=== PATIENT | male | born 1955 | race Caucasian/White ===

== ENCOUNTER 2020-10-29 12:38 | Observation (INO) | payer MEDICARE ==
[~2020-10-29] VITALS: Ht 162.6 cm; Wt 120.2 kg
[2020-10-29] MEDS ORDERED: DEXAMETHASONE PHOS 4MG/ML 5ML MULTIDOSE VIAL INJ ONE (13:30)
[2020-10-29] MEDS: KETOROLAC TROMETHAMINE 30 MG/ML VIAL IM PRN (13:46)
[2020-10-29] MEDS ORDERED: DEXAMETHASONE SOD PHOS 10 MG/1 ML VIAL ONE (13:52)
[2020-10-29] MEDS ORDERED: LORAZEPAM 0.5 MG TAB PO ONE (16:30)
[2020-10-29 20:11] LABS: BASOPHILS # (AUTO) 0.1 (0.0-0.1); BASOPHILS % 0.3 % (0.0-1.0); HEMATOCRIT 35.6 % (38.2-49.6); LYMPHOCYTES # (AUTO) 0.5 (1.0-3.2); LYMPHOCYTES % 2.6 % (18.0-39.1); MEAN CORPUSCULAR HEMOGLOBIN 29.6 pg (28-32); MEAN CORPUSCULAR HGB CONC 33.7 g/dL (31-35); MEAN CORPUSCULAR VOLUME 87.9 fL (81-99); MONOCYTES # (AUTO) 0.4 (0.2-0.8); MONOCYTES % 2.4 % (4.4-11.3); NEUTROPHILS # (AUTO) 16.4 (2.1-6.9); NEUTROPHILS % 93.9 % (38.7-80.0); PLATELET COUNT 257 x10e3/uL (140-360); RED BLOOD COUNT 4.05 x10e6/uL (4.3-5.7); RED CELL DISTRIBUTION WIDTH 12.2 % (11.7-14.4)
[2020-10-29 20:30] LABS: ALBUMIN 3.2 g/dL (3.5-5.0); ANION GAP 18.8 mmol/L (8-16); CALCIUM 9.4 mg/dL (8.4-10.2); CREATININE, SERUM 1.05 mg/dL (0.72-1.25); POTASSIUM 3.8 mmol/L (3.5-5.1)
[2020-10-30] VITALS (8 sets, daily range): BP systolic 130–179; BP diastolic 57–87
[2020-10-30] MEDS: HYDROCODONE/APAP 7.5MG-325MG 1 EA TAB PO PRN ×3 (03:00→17:36)
[2020-10-30] MEDS ORDERED: ATENOLOL50 MG PO (05:15)
[2020-10-30] MEDS ORDERED: TRIAMTERENE-HCTZ1 EA PO (05:15)
[2020-10-30] MEDS ORDERED: BUSPIRONE HCL5 MG PO (05:15)
[2020-10-30] MEDS ORDERED: PRAVASTATIN SOD40 MG (05:15)
[2020-10-30] MEDS ORDERED: METFORMIN HCL500 MG PO (05:16)
[2020-10-30] MEDS: KETOROLAC TROMETHAMINE 30 MG/ML VIAL IM PRN (09:50)
[2020-10-30 11:25] LABS: CHOL/HDL RATIO 4.5 (3.9-4.7)
[2020-10-30] MEDS: BUSPIRONE HCL 5 MG TAB PO SCH (12:37)
[2020-10-30] MEDS: DULOXETINE HCL 30 MG DELAYED RELEASE PO SCH (12:37)
[2020-10-30] MEDS: TRIAMTERENE/HCTZ 37.5-25 MG TAB PO SCH (12:37)
[2020-10-30] MEDS: GABAPENTIN 100 MG CAP PO SCH ×2 (12:38→23:28)
[2020-10-30] MEDS ORDERED: ATENOLOL 50 MG TAB PO SCH (13:00)
[2020-10-30] MEDS ORDERED: DOCUSATE SODIUM 100 MG CAP PO PRN (13:15)
[2020-10-30] MEDS ORDERED: ZOLPIDEM TARTRATE 5 MG TAB PO PRN (13:15)
[2020-10-30] MEDS ORDERED: ONDANSETRON HCL INJ 2MG/ML 2ML 2 MG/ML VIAL IV PRN (13:15)
[2020-10-30] MEDS ORDERED: DEXTROSE 50% SYRINGE 50 ML IV PRN (13:30)
[2020-10-30] MEDS: ACETAMINOPHEN 325 MG TAB PO SCH ×2 (15:20→22:00)
[2020-10-30] MEDS: INSULIN REGULAR, HUMAN 100 UNIT/1 ML SQ SCH ×2 (16:30→23:27)
[2020-10-30] MEDS: CYCLOBENZAPRINE HCL 10 MG TAB PO SCH (16:47)
[2020-10-30] MEDS: ATORVASTATIN 40 MG TAB PO SCH (23:28)
[2020-10-30] MEDS: HYDRALAZINE HCL 25 MG TAB PO SCH (23:28)
[2020-10-31] VITALS (10 sets, daily range): BP systolic 130–186; BP diastolic 40–87
[2020-10-31] MEDS: ACETAMINOPHEN 325 MG TAB PO SCH ×3 (06:29→23:00)
[2020-10-31] MEDS ORDERED: ACETAMINOPHEN325 M1 PO (07:15)
[2020-10-31] MEDS ORDERED: GABAPENTIN100 MG PO (07:15)
[2020-10-31] MEDS ORDERED: CYMBALTA30 MG PO (07:15)
[2020-10-31] MEDS ORDERED: HYDRALAZINE HCL25 MG PO (07:15)
[2020-10-31] MEDS ORDERED: CYCLOBENZAPRINE10 MG PO (07:15)
[2020-10-31] MEDS: INSULIN REGULAR, HUMAN 100 UNIT/1 ML SQ SCH ×5 (07:30→21:00)
[2020-10-31] MEDS: BUSPIRONE HCL 5 MG TAB PO SCH (08:59)
[2020-10-31] MEDS: TRIAMTERENE/HCTZ 37.5-25 MG TAB PO SCH (09:00)
[2020-10-31] MEDS: CYCLOBENZAPRINE HCL 10 MG TAB PO SCH ×2 (09:01→16:39)
[2020-10-31] MEDS: HYDRALAZINE HCL 25 MG TAB PO SCH ×3 (09:02→20:27)
[2020-10-31] MEDS: DULOXETINE HCL 30 MG DELAYED RELEASE PO SCH (09:03)
[2020-10-31 10:38] LABS: BASOPHILS % 0.4 % (0.0-1.0); EOSINOPHILS % 0.3 % (0.0-6.0); HEMATOCRIT 36.1 % (38.2-49.6); LYMPHOCYTES % 9.6 % (18.0-39.1); MEAN CORPUSCULAR HEMOGLOBIN 29.5 pg (28-32); MEAN CORPUSCULAR HGB CONC 33.2 g/dL (31-35); MEAN CORPUSCULAR VOLUME 88.7 fL (81-99); MONOCYTES # (AUTO) 0.9 (0.2-0.8); MONOCYTES % 9.2 % (4.4-11.3); NEUTROPHILS % 78.7 % (38.7-80.0); PLATELET COUNT 254 x10e3/uL (140-360); RED BLOOD COUNT 4.07 x10e6/uL (4.3-5.7); RED CELL DISTRIBUTION WIDTH 12.2 % (11.7-14.4)
[2020-10-31] MEDS: GABAPENTIN 100 MG CAP PO SCH ×3 (11:41→20:27)
[2020-10-31] MEDS: ISOSORBIDE DINITRATE 20 MG TAB PO SCH ×2 (13:09→16:39)
[2020-10-31] MEDS: HYDROCODONE/APAP 7.5MG-325MG 1 EA TAB PO PRN (20:28)
[2020-10-31] MEDS: ATORVASTATIN 40 MG TAB PO SCH (20:28)
[2020-11-01] VITALS: BP 176/72
[2020-11-01 04:00] VITALS: BP 142/60
[2020-11-01 06:00] LABS: BASOPHILS # (AUTO) 0.1 (0.0-0.1); BASOPHILS % 0.7 % (0.0-1.0); EOSINOPHILS # (AUTO) 0.1 (0.0-0.4); EOSINOPHILS % 0.8 % (0.0-6.0); HEMATOCRIT 36.9 % (38.2-49.6); HEMOGLOBIN 12.3 g/dL (14.0-18.0); LYMPHOCYTES # (AUTO) 0.8 (1.0-3.2); LYMPHOCYTES % 9.9 % (18.0-39.1); MEAN CORPUSCULAR HEMOGLOBIN 29.8 pg (28-32); MEAN CORPUSCULAR HGB CONC 33.3 g/dL (31-35); MEAN CORPUSCULAR VOLUME 89.3 fL (81-99); MONOCYTES # (AUTO) 0.7 (0.2-0.8); MONOCYTES % 8.4 % (4.4-11.3); NEUTROPHILS # (AUTO) 6.6 (2.1-6.9); NEUTROPHILS % 78.1 % (38.7-80.0); PLATELET COUNT 211 x10e3/uL (140-360); RED BLOOD COUNT 4.13 x10e6/uL (4.3-5.7); RED CELL DISTRIBUTION WIDTH 12.3 % (11.7-14.4)
[2020-11-01] MEDS: ACETAMINOPHEN 325 MG TAB PO SCH (06:00)
[2020-11-01 06:19] LABS: ANION GAP 16.7 mmol/L (8-16); CALCIUM 9.5 mg/dL (8.4-10.2); CREATININE, SERUM 0.83 mg/dL (0.72-1.25); MAGNESIUM 1.6 MG/DL (1.3-2.1); POTASSIUM 3.7 mmol/L (3.5-5.1)
[2020-11-01 06:51] LABS: PHOSPHORUS 3.8 MG/DL (2.3-4.7)
[2020-11-01] MEDS: INSULIN REGULAR, HUMAN 100 UNIT/1 ML SQ SCH (07:30)
[2020-11-01 08:00] VITALS: BP 142/59
[2020-11-01] MEDS: BUSPIRONE HCL 5 MG TAB PO SCH (09:12)
[2020-11-01] MEDS: HYDRALAZINE HCL 25 MG TAB PO SCH (09:12)
[2020-11-01] MEDS: ISOSORBIDE DINITRATE 20 MG TAB PO SCH (09:13)
[2020-11-01] MEDS: GABAPENTIN 100 MG CAP PO SCH (09:13)
[2020-11-01] MEDS: DULOXETINE HCL 30 MG DELAYED RELEASE PO SCH (09:13)
[2020-11-01] MEDS: CYCLOBENZAPRINE HCL 10 MG TAB PO SCH (09:14)
[2020-11-01] MEDS: TRIAMTERENE/HCTZ 37.5-25 MG TAB PO SCH (09:14)
[2020-11-01 09:35] VITALS: BP 142/59
== END 2020-11-01 10:00 | disposition home or self-care (01) ==
LOC: ER 12:48 → ERHOLD 18:10 → MED/SURG3 10-30 04:44
PROVIDERS: ADMIT Internal Medicine; ATTEND Internal Medicine
DX: M51.36 Other intervertebral disc degeneration, lumbar region (principal); E11.9 Type 2 diabetes mellitus without complications; I10 Essential (primary) hypertension; E78.5 Hyperlipidemia, unspecified; Z96.652 Presence of left artificial knee joint; Z87.891 Personal history of nicotine dependence; R00.1 Bradycardia, unspecified; W19.XXXA Unspecified fall, initial encounter; Y92.019 Unspecified place in single-family (private) house as the place of occurrence of the external cause; Z79.84 Long term (current) use of oral hypoglycemic drugs; Z20.822 Contact with and (suspected) exposure to COVID-19
CPT/HCPCS: 36415 ×4; 72110; 73502; 80048; 80053; 80061; 82948 ×3; 83036; 83735; 84100; 85025 ×3; 93005; G0378 ×4; J1100; J1817; J1885 ×2; J2405; U0002